=== PATIENT | female | born 1980 | race African-American/Black ===

== ENCOUNTER 2017-01-23 19:39 | Emergency (ER) | payer OTHER ==
[~2017-01-23] VITALS: Ht 170.2 cm; Wt 72.6 kg
[2017-01-23 19:57] VITALS: BP 125/79
--- NOTE | 2017-01-23 21:02 | NUR ---
Patient ambulated to bed 04.
--- NOTE | 2017-01-23 21:11 | NUR ---
37Y F BIB SELF C/O AB PAIN SINCE 0130 AM THIS MORNING. PT STATES AB PAIN IS CONSTANT, NONRADIATING, BURNING SENSATION. PT STATES PAIN IS 9/10 PAIN. PT STATES SHE WAS NAUSEATED BUT DENIES ANY VOMITING, DIARRHEA, CP AT THE MOMENT. PT IS AAOX4. BREATHING IS UNLABORED AND CLEAR BI LAT. PT STATES SHE TOOK 3 MOTRIN 800MG AND 1 BC POWDER FOR PAIN RELIEF, BUT PAIN DID NOT SUBSIDE. HX: NONE ALLERGIES: SULFA.
--- NOTE | 2017-01-23 21:52 | NUR ---
PT TO XRAY VIA WHEELCHAIR, ACCOMPANIED BY ANIMAL TRAINER SUPERVISOR.
--- NOTE | 2017-01-23 22:02 | NUR ---
Patient back from XRAY via wheelchair per tech.
--- NOTE | 2017-01-23 22:12 | NUR ---
Dr. Ayala evaluating patient at bedside.
[2017-01-23 23:14] VITALS: BP 119/82
--- NOTE | 2017-01-23 23:14 | NUR ---
Patient discharged with v/s stable. Written and verbal after care instructions given and explained. Patient alert, oriented and verbalized understanding of instructions. Ambulatory with steady gait. All questions addressed prior to discharge. ID band removed. Patient advised to follow up with PMD. Rx of LACTULOSE AND MAG CITRATE given. Patient educated on indication of medication including possible reaction and side effects. Opportunity to ask questions provided and answered.
== END 2017-01-23 23:14 | disposition home or self-care (01) ==
LOC: MED 19:39
DX: R10.84 Generalized abdominal pain (principal); R03.0 Elevated blood-pressure reading, without diagnosis of hypertension; Z88.2 Allergy status to sulfonamides
CPT/HCPCS: 74000; 81002; 81025; 99283